=== PATIENT | male | born 1975 | race Caucasian/White ===

== ENCOUNTER 2021-06-06 19:13 | Emergency (ER) | payer OTHER, SELFPAY ==
[2021-06-06 19:27] VITALS: BP 128/81; PULSE 90; RESP 16; TEMP 36.6; O2SAT 98
--- NOTE | 2021-06-06 19:38 | ED.SKABFB ---
HPI - Skin/Abscess/Foreign Bdy General Chief complaint: Skin/Abscess/Foreign Body Stated complaint: cat bite Time Seen by Provider: 06/06/21 19:35 Source: patient Mode of arrival: ambulatory Limitations: no limitations History of Present Illness HPI narrative: Haris Obrien is a 46 yo male with no PMH who [facility] with superficial cat bites that occurred less than an hour before arrival Related Data Home Medications Medication Instructions Recorded Confirmed ferrous [id number] [Fat 1 tablet PO DAILY 06/06/21 06/06/21 Burner] htkzcizccgig-aut-eqix-FA-vit K 1 tablet PO DAILY 06/06/21 06/06/21 [Adults Multivitamin] Allergies Allergy/AdvReac Type Severity Reaction Status Date / Time No Known Allergies Allergy Verified 06/06/21 19:33 Review of Systems Review of Systems: CONSTITUTIONAL: Denies fever, chills, sweats. EYES: Denies visual changes, redness, discharge. ENT: Denies rhinorrhea, congestion, sore throat, otalgia. CARDIOVASCULAR: Denies chest pain, palpitations, edema. RESPIRATORY: Denies dyspnea, wheezing, cough GASTROINTESTINAL: Denies abdominal pain, nausea, vomiting, diarrhea. GENITOURINARY: Denies dysuria, hematuria, abnormal discharge SKIN: Denies rash or itching. Superficial scratches from cat bite bilateral hands NEUROLOGIC: Denies numbness, or focal weakness. PSYCHIATRIC: Denies anxiety or depression. PMFSH Past Medical History Medical History No active medical problems Family History Family History Other No acute medical problems Social History Social History (Updated 06/06/21 @ 19:40 by Tran Low CNP) Smoking status: Current every day smoker Tobacco type: e-cigarettes/vaping Alcohol intake: current Gender identity (if verbalized by the patient): Male Comments At time of signature, I agree with nursing past medical, surgical, social and family history. There is no relevant family history pertinent to the presenting complaint. Exam Narrative: GENERAL: This is a well-nourished, well-developed patient, in mild distress. HEAD: normocephalic, atraumatic. EYES: Sclera clear/white. Vision is grossly intact. EARS: External ears normal, au Hearing grossly intact. NOSE: External nose normal without nasal discharge, nares without redness, no rhinorrhea. THROAT: Mucous membranes moist, NECK: Neck supple, CARDIOVASCULAR: Regular rate and rhythm without murmurs, gallops, or rubs. RESPIRATORY: Clear to auscultation. Breath sounds equal bilaterally. No wheezes, rales, or rhonchi. GASTROINTESTINAL: Abdomen soft, non-tender, SKIN: warm, intact with 5 small pinpoint pricks in fingers of both hands-no bleeding. No swelling NEURO: awake, alert, and oriented to person, place and time. There were no obvious focal neurologic abnormalities. Steady gait EXTREMITIES: Normal range of motion. BACK: Nontender without deformity Course Course Emergency Course: Patient comes to [facility] with pinpricks in bilateral hands from cat bite of a stray cat Tetanus shot given Started on Augmentin Vital Signs Vital signs: Vital Signs Temperature 97.8 F 06/06/21 19:27 Pulse Rate 90 06/06/21 19:27 Respiratory Rate 16 06/06/21 19:27 Blood Pressure 128/81 06/06/21 19:27 Pulse Oximetry 98 06/06/21 19:27 Temperature 97.8 F 06/06/21 19:27 Pulse Rate 90 06/06/21 19:27 Respiratory Rate 16 06/06/21 19:27 Blood Pressure 128/81 06/06/21 19:27 Pulse Oximetry 98 06/06/21 19:27 MDM - Skin/Abscess/Foreign Bdy Differential Diagnosis Differential diagnosis: Likely abscess of skin or subcutaneous tissue, urticaria, cellulitis, insect bites, contact dermatitis and other Critical Care Time Critical Care Time Critical Care Time: No Discharge Plan Discharge Clinical Impression: Cat bite Qualifiers: Encounter type: initial enc
[2021-06-06] MEDS: TETANUS,DIPHTHERIA,AC PERTUSSIS ADULT (0.5 ML) BOOSTRIX IM (19:43)
--- NOTE | 2021-06-06 20:00 | ED.GENADULT ---
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 EYES: Denies visual changes, redness, discharge. ENT: Denies rhinorrhea, congestion, sore throat, otalgia. CARDIOVASCULAR: Denies chest pain, palpitations, edema. RESPIRATORY: Denies dyspnea, wheezing, cough GASTROINTESTINAL: Denies abdominal pain, nausea, vomiting, diarrhea. GENITOURINARY: Denies dysuria, hematuria, abnormal discharge SKIN: Denies rash or itching. Small proximal and 5 fingers of hand NEUROLOGIC: Denies numbness, or focal weakness. PSYCHIATRIC: Denies anxiety or depression. PMFSH Past Medical History Medical History No active medical problems Family History Family History Other No acute medical problems Social History Social History Smoking status: Current every day smoker Tobacco type: e-cigarettes/vaping Alcohol intake: current Gender identity (if verbalized by the patient): Male Comments At time of signature, I agree with nursing past medical, surgical, social and family history. There is no relevant family history pertinent to the presenting complaint. Exam Narrative: GENERAL: This is a well-nourished, well-developed patient, in mild distress. HEAD: normocephalic, atraumatic. EYES: Sclera clear/white. Vision is grossly intact. EARS: External ears normal, Hearing grossly intact. NOSE: External nose normal without nasal discharge, nares without redness, no rhinorrhea. THROAT: Mucous membranes moist, NECK: Neck supple, CARDIOVASCULAR: Regular rate and rhythm without murmurs, gallops, or rubs. RESPIRATORY: Clear to auscultation. Breath sounds equal bilaterally. No wheezes, rales, or rhonchi. GASTROINTESTINAL: Abdomen soft, non-tender, SKIN: warm, intact with 5 small needle pricks to fingers 2 3 and 4 of right hand with no bruising are swelling; bleeding NEURO: awake, alert, and oriented to person, place and time. There were no obvious focal neurologic abnormalities. Steady gait EXTREMITIES: Normal range of motion. BACK: Nontender without deformity Course Course Emergency Course: Patient came to [facility] for small cat bite to right hand needs tetanus and started on Augmentin Vital Signs Vital signs: Vital Signs Temperature 97.8 F 06/06/21 19:27 Pulse Rate 90 06/06/21 19:27 Respiratory Rate 16 06/06/21 19:27 Blood Pressure 128/81 06/06/21 19:27 Pulse Oximetry 98 06/06/21 19:27 Temperature 97.8 F 06/06/21 19:27 Pulse Rate 90 06/06/21 19:27 Respiratory Rate 16 06/06/21 19:27 Blood Pressure 128/81 06/06/21 19:27 Pulse Oximetry 98 06/06/21 19:27 Medical Decision Making Differential Diagnosis Differential Diagnosis: Cat bite versus animal bite versus dog bite versus contact dermatitis Vital Signs Vital Signs: Vital Signs Temperature 97.8 F 06/06/21 19:27 Pulse Rate 90 06/06/21 19:27 Respiratory Rate 16 06/06/21 19:27 Blood Pressure 128/81 06/06/21 19:27 Pulse Oximetry 98 06/06/21 19:27 [place]after
== END 2021-06-06 20:03 | disposition home or self-care (01) ==
PROVIDERS: Emergency Provider Nurse Practitioner; PCP Family Medicine
DX: S61.239A Puncture wound without foreign body of unspecified finger without damage to nail, initial encounter (principal); W55.01XA Bitten by cat, initial encounter; Z23 Encounter for immunization; F17.200 Nicotine dependence, unspecified, uncomplicated
CPT/HCPCS: 90471; 90715; 99203; G0463